=== PATIENT | female | born 1955 | race African-American/Black ===

== ENCOUNTER 2016-08-10 11:30 | Day surgery (SDC) | payer BC, MEDICAID ==
[2016-08-10] MEDS ORDERED: DIPHENHYDRAMINE HCL 50 MG/ML VIAL ONE (12:07)
[2016-08-10] MEDS ORDERED: NALOXONE HCL INJ/PF 0.4 MG/1 ML SDV ONE (12:08)
[2016-08-10] MEDS ORDERED: ONDANSETRON HCL INJ/PF 4 MG/2 ML SDV ONE (12:08)
[2016-08-10] MEDS ORDERED: FENTANYL CITRATE INJ/PF 100 MCG/2 ML AMPUL ONE ×2 (12:08→12:09)
[2016-08-10] MEDS ORDERED: EPINEPHRINE INJ 1 MG/10 ML DISP.SYRIN ONE (12:09)
[2016-08-10] MEDS ORDERED: GLUCAGON,HUMAN RECOMB 1 MG INJ ONE (12:09)
[2016-08-10] MEDS ORDERED: FLUMAZENIL INJ 0.5 MG/5 ML VIAL IV ONE (12:09)
[2016-08-10] MEDS: MIDAZOLAM 2 MG/2 ML INJ ONE ×3 (12:26→12:35)
--- NOTE | 2016-08-10 13:37 | Operative Report ---
Operative Report DATE OF SURGERY: 08/10/16 Operative Report: The risks, benefits and alternatives of the procedure including risks of bleeding, perforation requiring surgery are explained to the patient detail and informed consent was obtained. Patient was taken back to the endoscopy suite and placed in the left, lateral decubital position. Timeout was called. Conscious sedation medications are provided. A rectal examination was done which did not reveal any masses, tears or fissures. An Olympus video scope was inserted into the patient's rectum. The scope was then carefully guided all the way to the cecum. The cecum was identified by the usual anatomical landmarks including the ileocecal valve as well as the appendiceal office. Photodocumentation is obtained. The scope was then sequentially pulled back via the rest segments of the colon including the ascending colon, hepatic flexure, transverse colon, splenic flexure, descending colon and finding to the rectosigmoid portions of the colon. Photodocumentation was obtained. Retroflexion maneuver was performed. The risks benefits and alternatives of the procedure explained to the patient in detail and informed consent is obtained. A GIF Olympus video scope was inserted into the patient's mouth and hypopharynx, the esophagus is identified intubated and insufflated, the scope was then advanced through the esophagus stomach and duodenum, retroflexion maneuver is done, the esophagus stomach and first and second portions of the duodenum examined PREOPERATIVE DIAGNOSIS: Personal history of polyps. Gastroesophageal reflux disease POSTOPERATIVE DIAGNOSIS: 2 polyps noted in the ascending colon removed via snare polypectomy. The post polypectomy site and 1 of the polyps was noted to have some oozing; an Endo Clip is used for hemostasis. Internal hemorrhoids. Gastritis status post biopsy rule out Helicobacter pylori OPERATION: Colonoscopy with snare polypectomy. EGD with biopsy SURGEON: ANGLE MONTAÑO ANESTHESIA: Moderate Sedation - 5 mg Versed, 100 mcg of fentanyl. Conscious sedation monitoring time 30 minutes. TISSUE REMOVED OR ALTERED: Gastric and colon specimens was obtained. COMPLICATIONS: None. ESTIMATED BLOOD LOSS: None. INTRAOPERATIVE FINDINGS: As described above. PROCEDURE: Patient tolerated procedure well. No immediate postprocedure complications are noted. Patient discharged in good condition. Discharge date 08/10/2016. Discharge diet: Regular. Discharge activity: Regular. 2-3 week follow-up to discuss findings. 3-5 year surveillance colonoscopy. Patient is instructed to call the office or proceed to the emergency room should there be any further problems or questions. We will wait on biopsies.
[2016-08-10 14:13] VITALS: BP 135/74
== END 2016-08-10 14:10 | disposition home or self-care (01) ==
LOC: END 11:30
PROVIDERS: ATTEND Internal Medicine Gastroenterology
PROC: 0DB68ZX Excision of Stomach, Via Natural or Artificial Opening Endoscopic, Diagnostic (ICD-10-PCS; principal; 2016-08-10 12:00)
PROC: 0DBK8ZX Excision of Ascending Colon, Via Natural or Artificial Opening Endoscopic, Diagnostic (ICD-10-PCS; 2016-08-10 12:00)
DX: D12.2 Benign neoplasm of ascending colon (principal); K64.8 Other hemorrhoids; K29.50 Unspecified chronic gastritis without bleeding; K21.9 Gastro-esophageal reflux disease without esophagitis; E66.01 Morbid (severe) obesity due to excess calories; Z68.41 Body mass index [BMI] 40.0-44.9, adult; Z88.2 Allergy status to sulfonamides; Z79.899 Other long term (current) drug therapy
CPT/HCPCS: 43239; 45385; 88342 ×2; 88305 ×2; J2250; J3010; J0171; J1200; J1610; J2310; J2405; J3490

== ENCOUNTER 2018-12-07 08:56 | Day surgery (SDC) | payer MEDICAID ==
[2018-12-04 09:57] LABS: HEMATOCRIT 36.9 % (36.0-47.0); HEMOGLOBIN 12.3 g/dL (12.0-15.5); MEAN CORPUSCULAR HEMOGLOBIN 28.7 pg (27.0-33.4); MEAN CORPUSCULAR HGB CONC 33.3 g/dL (32.0-36.0); MEAN CORPUSCULAR VOLUME 86 fl (80-97); PLATELET COUNT 317 10^3/uL (150-450); RED BLOOD COUNT 4.29 10^6/uL (3.72-5.28); RED CELL DISTRIBUTION WIDTH 14.1 % (11.5-14.0); WHITE BLOOD COUNT 8.3 10^3/uL (4.0-10.5)
[2018-12-04 10:20] LABS: APPEARANCE,URINE SLIGHTLY-CLOUDY; BILIRUBIN,URINE NEGATIVE (NEGATIVE); COLOR,URINE YELLOW; GLUCOSE, URINE NEGATIVE (NEGATIVE); KETONES,URINE NEGATIVE (NEGATIVE); LEUKOCYTE ESTERASE,URINE NEGATIVE (NEGATIVE); NITRITE,URINE NEGATIVE (NEGATIVE); PROTEIN,URINE NEGATIVE (NEGATIVE); URINE SPECIFIC GRAVITY 1.016; UROBILINOGEN,URINE NEGATIVE mg/dL (<2.0)
[2018-12-04 10:30] LABS: ALBUMIN 3.8 g/dL (3.5-5.0); ALKALINE PHOSPHATASE 67 U/L (38-126); ANION GAP 7 (5-19); ASPARTATE AMINO TRANSFERASE 18 U/L (14-36); BILIRUBIN,DIRECT 0.2 mg/dL (0.0-0.4); BILIRUBIN,TOTAL 0.4 mg/dL (0.2-1.3); BLOOD UREA NITROGEN 14 mg/dL (7-20); CALCIUM 9.2 mg/dL (8.4-10.2); CARBON DIOXIDE 29 mmol/L (22-30); CHLORIDE 104 mmol/L (98-107); GLUCOSE 109 mg/dL (75-110); POTASSIUM 4.1 mmol/L (3.6-5.0); TOTAL PROTEIN 7.8 g/dL (6.3-8.2)
--- NOTE | 2018-12-04 16:55 | EKG REPORT ---
SEVERITY:- ABNORMAL ECG - SINUS RHYTHM NONSPECIFIC T ABNORMALITIES, INFERIOR LEADS : Confirmed by: Kat Alaniz MD 04-Dec-2018 16:54:54
[~2018-12-07 08:56] MED LIST: CEFAZOLIN INJ 1 GM VIAL ONE
[2018-12-07] MEDS ORDERED: LIDOCAINE 1% INJ-PF (10 MG/ML) 30 ML SDV ONE (09:51)
[2018-12-07] MEDS ORDERED: PROPOFOL INJ 200 MG/20 ML VIAL IV ONE ×2 (10:19→10:20)
[2018-12-07] MEDS ORDERED: FENTANYL CITRATE INJ/PF 100 MCG/2 ML AMPUL ONE (10:19)
[2018-12-07] MEDS ORDERED: MIDAZOLAM 2 MG/2 ML INJ ONE (10:19)
[2018-12-07] MEDS ORDERED: DIPHENHYDRAMINE HCL 50 MG/ML VIAL IV PRN (10:48)
[2018-12-07] MEDS ORDERED: FENTANYL CITRATE INJ/PF 100 MCG/2 ML AMPUL IV PRN ×3 (10:48)
[2018-12-07] MEDS ORDERED: OXYCODONE-ACETAMINOPHEN 5-325 MG TABLET PO PRN ×2 (11:36)
[2018-12-07] MEDS ORDERED: PROMETHAZINE HCL INJ 25 MG/1 ML VIAL IV PRN (11:37)
[2018-12-07 12:32] VITALS: BP 158/84
--- NOTE | 2019-01-16 18:09 | Operative Report ---
Operative Report DATE OF SURGERY: 12/07/18 PREOPERATIVE DIAGNOSIS: Post menopausal bledding POSTOPERATIVE DIAGNOSIS: same OPERATION: Fractional D&C SURGEON: BRIE MCGREGOR ANESTHESIA: LMAC TISSUE REMOVED OR ALTERED: Endocervix / Endometrial COMPLICATIONS: none QUANTITATIVE BLOOD LOSS: 25 INTRAOPERATIVE FINDINGS: Normal vulva / Normal vagina / Stenotic cervix / Uterine enlarged (sounded to 10cm) / Adnexa negative PROCEDURE: Patient brought into the OR and placed on the table in supine position. Patient conducted under LMAC. Patient was repositioned in a dorsolithotomy position. The patient's bladder was then emptied of about 50 cc of clear yellow urine. A pelvic under anesthesia was then performed. A weighted speculum was inserted to the into the vagina. The anterior lip of the cervix was then grasped with a single-tooth tenaculum and an Allis clamp. Curettings were then obtained in the endocervical canal after cervical dilatation. Further cervical dilatation was then obtained. Weighted speculum was not providing adequate visualization and so the Allis clamp and the tenaculum were removed and the weighted speculum was removed. A bivalve speculum was then inserted and the cervix was again visualized with a Allis clamp being placed on the anterior lip. Further cervica l dilatation was then carried out using Hegar dilators to a number 6 size. The uterine cavity was then curetted with a small sharp curette. Then using polyp forceps the endometrial cavity was once again evaluated. More polypoid tissue was removed. The tissue was sent to the lab for further evaluation. This terminated the procedure. Anesthesia was DC'd and the patient was placed back in the supine position and transferred to the recovery room in satisfactory condition. Estimated blood loss was 25 cc.
== END 2018-12-07 12:30 | disposition home or self-care (01) ==
LOC: OROUT 08:56
PROVIDERS: ATTEND Obstetrics & Gynecology
DX: N95.0 Postmenopausal bleeding (principal); N88.2 Stricture and stenosis of cervix uteri; N84.0 Polyp of corpus uteri; Z79.84 Long term (current) use of oral hypoglycemic drugs; Z79.899 Other long term (current) drug therapy; Z88.2 Allergy status to sulfonamides; I10 Essential (primary) hypertension; R01.1 Cardiac murmur, unspecified; Z87.891 Personal history of nicotine dependence
CPT/HCPCS: 93005; 36415 ×2; 84132; 85027; 80053; 81001; 88305 ×2; 93010; 00952; 58120; J2250; J0690; J3010; J3490; J2704; 952